=== PATIENT | female | born 1995 | race American Indian/Alaskan Native ===

== ENCOUNTER 2021-02-25 01:41 | Emergency (ER) | payer MEDICAID ==
[2021-02-25] MEDS ORDERED: ONDANSETRON 4 MG/2 ML INJ IV ONE ×2 (03:41→04:40)
[2021-02-25] MEDS ORDERED: SODIUM CHLORIDE 0.9% 1000 ML 1,000 ML IV ONE (03:41)
[2021-02-25] MEDS ORDERED: DICYCLOMINE 20 MG/2 ML INJ IM ONE (03:42)
[2021-02-25] MEDS ORDERED: MORPHINE 4 MG/1 ML INJ IV ONE (04:40)
[2021-02-25 04:43] LABS: Eosinophils % (Auto) 0.8 % (0.0-4.3); Hematocrit 39.6 % (30.3-42.9); Hemoglobin 12.9 gm/dl (10.1-14.3); Lymphocytes % (Auto) 32.4 % (13.4-35.0); Mean Corpuscular HGB Conc 33 % (30-34); Mean Corpuscular Volume 96 fl (79-97); Monocytes % (Auto) 8.5 % (0.0-7.3); Platelet Count 327 K/mm3 (140-440); Red Blood Count 4.13 M/mm3 (3.65-5.03); Red Cell Distribution Width 13.9 % (13.2-15.2)
[2021-02-25 04:44] LABS: Basophils % (Auto) 0.3 % (0.0-1.8); Eosinophils # (Auto) 0.1 K/mm3 (0.0-0.4); Lymphocytes # (Auto) 2.3 K/mm3 (1.2-5.4); Monocytes # (Auto) 0.6 K/mm3 (0.0-0.8)
[2021-02-25 04:47] LABS: Bilirubin,Urine Negative (Negative); Blood,Urine Negative (Negative); Color,Urine Yellow (Yellow)
[2021-02-25 04:48] LABS: Mucus,Urine 3+ /HPF
[2021-02-25 05:09] LABS: Alanine Aminotransferase 9 units/L (7-56); BUN/Creatinine Ratio 14; Blood Urea Nitrogen 10 mg/dL (7-17); Calcium 9.3 mg/dL (8.4-10.2)
[2021-02-25 05:10] LABS: Hemolysis Index 8
--- NOTE | 2021-02-25 06:45 | Emergency Department Report ---
HPI - General Chief Complaint: Abdominal Pain Time Seen by Provider: 02/25/21 06:10 - HPI HPI: 26-year-old -[place] female presents to the emergency department with a complaint of a 2-week history of abdominal pain that worsened last night. She d enies any nausea, vomiting, diarrhea, dysuria, vaginal bleeding, fever. She denies any past medical history. She has not taken anything for symptoms prior to presentation. Initially the pain was left-sided wrapping around to the flank. Now the abdominal pain is more right-sided. The patient came in prior to my shift starting and says that initially her abdominal pain was 9 out of 10 in intensity. Since that time she has received some IV analgesia and her pain is greatly improved, down to about a 2 out of 10. No known aggravating or alleviating factors. ED Past Medical Hx - Past Medical History Previous Medical History?: No - Surgical History Past Surgical History?: No - Medications Home Medications: Home Medications Medication Instructions Recorded Confirmed Last Taken Type Nitrofurantoin Blaine/M-Cryst 100 mg PO Q12HR #14 capsule 02/25/21 Unknown Rx [Macrobid CAP] traMADoL [Ultram 50 MG tab] 50 mg PO Q6HR PRN #10 tablet 02/25/21 Unknown Rx ED Review of Systems ROS: Stated complaint: ABDOMINAL PAIN Other details as noted in HPI Comment: All other systems reviewed and negative Constitutional: denies: chills, fever Eyes: denies: eye pain, vision change ENT: denies: ear pain, throat pain Respiratory: denies: cough, shortness of breath Cardiovascular: denies: chest pain, palpitations Gastrointestinal: abdominal pain. denies: vomiting Genitourinary: denies: dysuria, hematuria Musculoskeletal: denies: back pain, arthralgia Skin: denies: rash, lesions Neurological: denies: headache, weakness Physical Exam - Physical Exam Vital Signs: Vital Signs 02/25/21 01:43 Temperature 97.8 F Pulse Rate 67 Respiratory 18 Rate Blood Pressure 106/58 O2 Sat by Pulse 100 Oximetry Physical Exam: GENERAL: The patient is well-developed well-nourished. HENT: Normocephalic. Atraumatic. Patient has moist mucous membranes. EYES: Extraocular motions are intact. NECK: Supple. Trachea is midline. CHEST/LUNGS: Clear to auscultation. There is no respiratory distress noted. HEART/CARDIOVASCULAR: Regular. There is no tachycardia. There is no murmur. ABDOMEN: Abdomen is soft. Right-sided abdominal tenderness to palpation. No guarding. Patient has normal bowel sounds. There is no abdominal distention. SKIN: Skin is warm and dry. NEURO: The patient is awake, alert, and oriented. The patient is cooperative. The patient has no focal neurologic deficits. Normal speech. MUSCULOSKELETAL: There is no tenderness or deformity. There is no limitation range of motion. ED Course Vital Signs 02/25/21 01:43 Temperature 97.8 F Pulse Rate 67 Respiratory 18 Rate Blood Pressure 106/58 O2 Sat by Pulse 100 Oximetry ED Medical Decision Making - Lab Data Result diagrams: 02/25/21 04:15 02/25/21 04:15 Lab Results 02/25/21 02/25/21 02/25/21 Range/Units 03:57 04:15 04:15 WBC 7.2 (4.5-11.0) K/mm3 RBC 4.13 (3.65-5.03) M/mm3 Hgb 12.9 (10.1-14.3) gm/dl Hct 39.6 (30.3-42.9) % MCV 96 (79-97) fl MCH 31 (28-32) pg MCHC 33 (30-34) % RDW 13.9 (13.2-15.2) % Plt Count 327 (140-440) K/mm3 Lymph % (Auto) 32.4 (13.4-35.0) % Blaine % (Auto) 8.5 H (0.0-7.3) % Eos % (Auto) 0.8 (0.0-4.3) % Baso % (Auto) 0.3 (0.0-1.8) % Lymph # (Auto) 2.3 (1.2-5.4) K/mm3 Blaine # (Auto) 0.6 (0.0-0.8) K/mm3 Eos # (Auto) 0.1 (0.0-0.4) K/mm3 Baso # (Auto) 0.0 (0.0-0.1) K/mm3 Seg Neutrophils % 58.0 (40.0-70.0) % Seg Neutrophils # 4.2 (1.8-7.7) K/mm3 Sodium 138 (137-145) mmol/L Potassium 3.8 (3.6-5.0) mmol/L Chloride 104.2 (98-107) mmol/L Carbon Dioxide 22 (22-30) mmol/L Anion Gap 16 mmol/L BUN 10 (7-17) mg/dL Creatinine 0.7 (0.6-1.2) mg/dL Estimated GFR > 60 ml/min BUN/Creatinine Ratio 14 % Glucose 103 H (65-100) mg/dL Calcium 9.3 (8.4-10.2) mg/dL Total Bilirubin 0.30 (0.1-1.2) mg/dL AST 17 (5-40) units/L ALT 9 (7-56) units/L Alkaline Phosphatase 71 (35-129) units/L Total Protein 7.8 (6.3-8.2) g/dL Albumin 4.0 (3.9-5) g/dL Albumin/Globulin Ratio 1.1 % Lipase 8 L (13-60) units/L HCG, Quant (0-4) mIU/mL Urine Color Yellow (Yellow) Urine Turbidity Hazy (Clear) Urine pH 5.0 (5.0-7.0) Ur Specific [place] 1.036 H (1.003-1.030) Urine Protein 30 mg/dl (Negative) mg/dL Urine Glucose (UA) Negative (Negative) mg/dL Urine Ketones Negative (Negative) mg/dL Urine Blood Negative (Negative) Urine Nitrite Negative (Negative) Urine Bilirubin Negative (Negative) Urine Urobilinogen 2.0 (<2.0) mg/dL Ur Leukocyte Esterase Moderate (Negative) Urine WBC (Auto) 18.0 H (0.0-6.0) /HPF Urine RBC (Auto) 4.0 (0.0-6.0) /HPF U Epithel Cells (Auto) 13.0 (0-13.0) /HPF Urine Mucus 3+ /HPF 02/25/21 Range/Units 04:15 WBC (4.5-11.0) K/mm3 RBC (3.65-5.03) M/mm3 Hgb (10.1-14.3) gm/dl Hct (30.3-42.9) % MCV (79-97) fl MCH (28-32) pg MCHC (30-34) % RDW (13.2-15.2) % Plt Count (140-440) K/mm3 Lymph % (Auto) (13.4-35.0) % Blaine % (Auto) (0.0-7.3) % Eos % (Auto) (0.0-4.3) % Baso % (Auto) (0.0-1.8) % Lymph # (Auto) (1.2-5.4) K/mm3 Blaine # (Auto) (0.0-0.8) K/mm3 Eos # (Auto) (0.0-0.4) K/mm3 Baso # (Auto) (0.0-0.1) K/mm3 Seg Neutrophils % (40.0-70.0) % Seg Neutrophils # (1.8-7.7) K/mm3 Sodium (137-145) mmol/L Potassium (3.6-5.0) mmol/L Chloride (98-107) mmol/L Carbon Dioxide (22-30) mmol/L Anion Gap mmol/L BUN (7-17) mg/dL Creatinine (0.6-1.2) mg/dL Estimated GFR ml/min BUN/Creatinine Ratio % Glucose (65-100) mg/dL Calcium (8.4-10.2) mg/dL Total Bilirubin (0.1-1.2) mg/dL AST (5-40) units/L ALT (7-56) units/L Alkaline Phosphatase (35-129) units/L Total Protein (6.3-8.2) g/dL Albumin (3.9-5) g/dL Albumin/Globulin Ratio % Lipase (13-60) units/L HCG, Quant < 2.0 (0-4) mIU/mL Urine Color (Yellow) Urine Turbidity (Clear) Urine pH (5.0-7.0) Ur Specific [place] (1.003-1.030) Urine Protein (Negative) mg/dL Urine Glucose (UA) (Negative) mg/dL Urine Ketones (Negative) mg/dL Urine Blood (Negative) Urine Nitrite (Negative) Urine Bilirubin (Negative) Urine Urobilinogen (<2.0) mg/dL Ur Leukocyte Esterase (Negative) Urine WBC (Auto) (0.0-6.0) /HPF Urine RBC (Auto) (0.0-6.0) /HPF U Epithel Cells (Auto) (0-13.0) /HPF Urine Mucus /HPF - Radiology Data Radiology results: report reviewed CT abdomen pelvis wo con INDICATION: abd pain r/o renal stones. COMPARISON: None TECHNIQUE: Abdominal and pelvic CT exam performed. All CT scans at this location are performed using CT dose reduction for ALARA by means of automated exposure control. FINDINGS: CT ABDOMEN and PELVIS: Lung Bases: Minimal left basilar atelectasis. Liver: No significant abnormality. Biliary: No definite stones. No gallbladder wall thickening or pericholecystic fluid. Spleen: No significant abnormality. Pancreas: No significant abnormality. Adrenals: No significant abnormality. Kidneys: No significant abnormality. Lymphatics: No lymphadenopathy. Vasculature: No significant abnormality. Bowel: No significant abnormality. Normal appendix. Pelvis: Retroverted uterus. Osseous Structures: No aggressive osseous lesion. Additional Findings: None IMPRESSION: 1. No renal stones. No acute findings identified. - Medical Decision Making This patient presents to the emergency department with a complaint of a 2-week history of abdominal pain that worsened last night. On examination the patient has reproducible right-sided abdominal tenderness to palpation. The abdomen is soft, nondistended and nontoxic in appearance. Labs have been unremarkable including CBC, metabolic panel, lipase, urinalysis, and the patient is not . She did have a mild urinary tract infection for which she will be treated with Macrobid. She had a CT scan of the abdomen pelvis that does not show any acute process or etiology of her discomfort. Vital signs reassuring throughout her ED course including being afebrile. This patient was reevaluated multiple times for multiple hours and appears improved. Patient tells me that she continues to have some abdominal pain, however, each time I went to reevaluate the patient she was seen resting comfortably and had to be woken up from sleep to discuss the results or treatment plan. Patient was given a presc ription for pain medication and outpatient referrals for primary care and gastroenterology. She was instructed to return to the emergency department with any worsening of her symptoms or with any acute distress. Critical care attestation.: If time is entered above; I have spent that time in minutes in the direct care of this critically ill patient, excluding procedure time. ED Disposition Clinical Impression: Abdominal pain, UTI (urinary tract infection) Disposition: HOME / SELF CARE / HOMELESS Is pt being admited?: No Condition: Stable Instructions: Abdominal Pain, Adult, Urinary Tract Infection, Adult, Abdominal Pain (ED) Additional Instructions: Please follow-up with a primary care physician in the next few days. I have given you a referral for a local primary care physician, Dr. Schuler, and a primary care clinic, [facility]. I am giving you a referral for [place] [facility] to follow-up regarding your abdominal pain. Take all medications only as prescribed. You have been prescribed a medication that is sedating and therefore should not be taken prior to driving, working, and responsible for children and in no way should be mixed with alcohol of any quantity. Return to the emergency department with any worsening of your symptoms, new or concerning symptoms not addressed during this current emergency department visit, or with any acute distress. Prescriptions: Nitrofurantoin Blaine/M-Cryst [Macrobid CAP] 100 mg PO Q12HR #14 capsule traMADoL [Ultram 50 MG tab] 50 mg PO Q6HR PRN #10 tablet PRN Reason: Pain Referrals: PRIMARY CAREMD [Primary Care Provider] - 3-5 Days GIULIANA SCHULER MD [Staff Physician] - 3-5 Days [facility] [Provider Group] - 3-5 Days [facility] [Provider Group] - 3-5 Days Time of Disposition: 08:45
--- NOTE | 2021-02-25 08:36 | Cat Scan Report ---
CT abdomen pelvis wo con INDICATION: abd pain r/o renal stones. COMPARISON: None TECHNIQUE: Abdominal and pelvic CT exam performed. All CT scans at this location are performed using CT dose reduction for ALARA by means of automated exposure control. FINDINGS: CT ABDOMEN and PELVIS: Lung Bases: Minimal left basilar atelectasis. Liver: No significant abnormality. Biliary: No definite stones. No gallbladder wall thickening or pericholecystic fluid. Spleen: No sign ificant abnormality. Pancreas: No significant abnormality. Adrenals: No significant abnormality. Kidneys: No significant abnormality. Lymphatics: No lymphadenopathy. Vasculature: No significant abnormality. Bowel: No significant abnormality. Normal appendix. Pelvis: Retroverted uterus. Osseous Structures: No aggressive osseous lesion. Additional Findings: None IMPRESSION: 1. No renal stones. No acute findings identified. Signer Name: Austin Velazquez MD Signed: 02/25/2021 8:32 AM Workstation Name: [id number]
[2021-02-25 08:46] VITALS: BP 96/54
== END 2021-02-25 08:55 | disposition home or self-care (01) ==
LOC: ED 01:41
DX: N39.0 Urinary tract infection, site not specified (principal)
CPT/HCPCS: 36415; 74176; 80053; 81001; 83690; 84702; 85025; 87086; 96361; 96372; 96374; 96375; 96376; 99284; J0500; J2270; J2405; J7030; Q0162